=== PATIENT | female | born 1960 | race Two or more races ===

== ENCOUNTER 2017-04-13 04:17 | Inpatient (IN) | payer MEDICAID ==
[~2017-04-13] VITALS: Ht 157.5 cm; Wt 74.4 kg
[2017-04-13] VITALS (32 sets, daily range): BP systolic 79–120; BP diastolic 34–110
[~2017-04-13 04:17] MED LIST: BLOO-367 IN; INSU100V28 SQ; LEVO500T15 PO
[2017-04-13] MEDS ORDERED: METOPROLOL TARTRATE INJ 5 MG/5 ML AMPUL IV ONE (04:30)
[2017-04-13] MEDS ORDERED: NITROGLYCERIN PACKET 1 GM PACKET TD ONE (04:30)
[2017-04-13] MEDS ORDERED: ASPIRIN 81 MG TAB.CHEW PO ONE (04:30)
--- NOTE | 2017-04-13 04:30 | NUR ---
56 YO FEMALE BB RA FROM [facility]. PT IS ALERT X 3, STATES SHE HAD AN EPUSODE OF CHEST PAIN, NO LONGER HAVING THE CHEST PAIN AT THIS TIME. PT GOWNED, PALCED ONC ARDIAC MONITOR. SKIN WARM AND DRY, RR EVEN AND UNLABORED. AWAITING ORDERS FROM PROVIDER, WILL CONTINUE TO MONITOR
[2017-04-13] MEDS ORDERED: ASPIRIN 325 MG TABLET ONE (04:34)
--- NOTE | 2017-04-13 04:45 | NUR ---
PER MD ORDERS HOLD ON THE MEDICATION DUE TO LOW BLOOD PRESSURE
[2017-04-13] MEDS ORDERED: RANI150T12 PO (04:46)
[2017-04-13] MEDS ORDERED: SIMV10TA2 PO (04:46)
[2017-04-13] MEDS ORDERED: URSO250T11 PO (04:46)
[2017-04-13] MEDS ORDERED: ASPI81TA2 PO (04:46)
[2017-04-13] MEDS ORDERED: SITA100T PO (04:46)
[2017-04-13] MEDS ORDERED: METF10002 PO (04:46)
[2017-04-13] MEDS ORDERED: INSU100I14 SQ (04:46)
[2017-04-13] MEDS ORDERED: ACET-868 PO (04:46)
[2017-04-13] MEDS ORDERED: SPIR25TA PO (04:46)
[2017-04-13] MEDS ORDERED: DOCU-25 PO (04:46)
[2017-04-13] MEDS ORDERED: HYDR-552 PO (04:46)
[2017-04-13] MEDS ORDERED: POTA20TA83 PO (04:46)
[2017-04-13] MEDS ORDERED: GABA300C PO (04:46)
[2017-04-13] MEDS ORDERED: FOLI1TAB16 PO (04:46)
[2017-04-13] MEDS ORDERED: CARV3.12 PO (04:46)
--- NOTE | 2017-04-13 04:48 | NUR ---
MEDICATED PT PER MD ORDER; 500ML NS IV BOLUS, WILL CONTINUE TO MONITOR THE BLOOD PRESSURE
[2017-04-13 04:59] LABS: BASOPHILS % (AUTO) 0.2 % (0.0-2.0); EOSINOPHILS # (AUTO) 0.1 /CMM (0.0-0.7); HEMATOCRIT 40 % (33-45); HEMOGLOBIN 12.6 g/dL (11.5-14.8); LYMPHOCYTES # (AUTO) 0.9 /CMM (0.8-4.8); LYMPHOCYTES % (AUTO) 12.3 % (20.0-44.0); MEAN CORPUSCULAR HEMOGLOBIN 28 PG (26.0-33.0); MEAN CORPUSCULAR HGB CONC 32 g/dl (31.0-36.0); MEAN CORPUSCULAR VOLUME 89 fL (82-100); MONOCYTES # (AUTO) 0.3 /CMM (0.1-1.30); MONOCYTES % (AUTO) 4.6 % (2.0-12.0); NEUTROPHILS # (AUTO) 5.9 /CMM (1.8-8.9); NEUTROPHILS % (AUTO) 81.9 % (43.0-81.0); PLATELET COUNT (AUTO) 164 /CMM (150-450); RDW COEFFICIENT OF VARIATION 16.1 (11.5-15.0); RED BLOOD CELL COUNT(AUTO) 4.48 MIL/uL (4.0-5.2); WHITE BLOOD COUNT (AUTO) 7.3 K/uL (4.3-11.0)
[2017-04-13] MEDS ORDERED: IV NS 0.9% 1,000 ML BAG IV ONE ×2 (05:00→05:30)
[2017-04-13 05:12] LABS: CREATININE 1.1 mg/dL (0.6-1.3); POTASSIUM 3.1 mmol/L (3.5-5.1)
--- NOTE | 2017-04-13 05:15 | NUR ---
AT 500ML NS BOLUS SBP IS 101. MD NOTIFIED. PER MD, ADMIN ANOTHER 500ML NS BOLUS. WILL CONTINUE TO MONITOR
[2017-04-13 05:19] LABS: TROPONIN I 0.24 ng/mL (0.00-0.056)
[2017-04-13 05:20] LABS: D-DIMER 0.59 mg/L(FEU (0.17-0.50); INR 0.93 (0.87-1.13); PROTHROMBIN TIME 9.7 SECS (9.5-12.7)
[2017-04-13 05:24] LABS: ALBUMIN 2.6 g/dL (3.4-5.0); BILIRUBIN,DIRECT 0.1 mg/dL (0.0-0.2); BILIRUBIN,TOTAL 0.5 mg/dL (0.2-1.0)
--- NOTE | 2017-04-13 05:45 | NUR ---
AFTER SECOND 500 ML NS BOLUS, SBP IS 106. MD NOTIFIED. WILL CONTINUE TO MONITOR
--- NOTE | 2017-04-13 06:14 | NUR ---
DR. MAURISIO VELA
--- NOTE | 2017-04-13 06:15 | NUR ---
PER DR. FORDE, ADMIN DIGOXIN FOR TACHYCARDIA AND ADMIN IN ICU.
[2017-04-13] MEDS ORDERED: DIGOXIN INJ 0.5 MG/2 ML AMPUL ONE (06:22)
[2017-04-13] MEDS ORDERED: DIGOXIN INJ 0.5 MG/2 ML AMPUL IV ONE (06:30)
--- NOTE | 2017-04-13 06:30 | NUR ---
MEDICATED PT ORDERED
--- NOTE | 2017-04-13 06:37 | NUR ---
22G RIGHT HAND IV STARTED.
--- NOTE | 2017-04-13 06:43 | NUR ---
ICU 256
--- NOTE | 2017-04-13 07:32 | NUR ---
REPORT GIVEN TO BLAZE CARCAMO FOR DEMAR
--- NOTE | 2017-04-13 08:13 | NUR ---
INITIAL BOARD ATTENDANT NOTE RCVD PT FROM ER AWAKE AND ALERT, SHOWING NO S/O DISTRESS OR C/O PAIN VERBALIZED. AFLUTTER IN MONITOR, ON RA WITH GOOD SATURATION. SKIN INTACT. IV SITES C/D/I/PATENT. ORDERS ACKNOWLEDGED IN CHART AND ENTERED. PER REPORT FROM DONA AGARWAL DR. AWARE OF PT'S ELEVATED TROPONIN/D-DIMER. PT'S VITAL SIGNS REMAIN STABLE AT THIS TIME. WILL CONTINUE TO MONITOR FOR SAFETY AND COMFORT. CALL LIGHT WITHIN REACH. BED IN LOW AND LOCKED POSITION.
[2017-04-13] MEDS ORDERED: MORPHINE SULFATE INJ 2 MG/ML DISP.SYRIN IV PRN (08:30)
[2017-04-13] MEDS ORDERED: NOREPINEPHRINE 16 MG in IV D5W 500 ML IV PRN ×2 (08:30→09:00)
[2017-04-13] MEDS: NITROGLYCERIN 30 GM TUBE TP SCH ×2 (09:00→15:00)
[2017-04-13] MEDS ORDERED: PANTOPRAZOLE 40 MG TABLET.DR PO SCH (09:00)
[2017-04-13] MEDS ORDERED: ASPIRIN 81 MG TAB.CHEW PO SCH ×2 (09:00→11:28)
[2017-04-13] MEDS: NITROGLYCERIN PACKET 1 GM PACKET TD SCH ×2 (11:30→16:56)
--- NOTE | 2017-04-13 11:35 | NUR ---
EXHAUST AND MUFFLER FITTER NOTE DR. VIGIL CALLED WITH TROPONIN RESULTS TRENDING UP AND K 3.1. WILL CONTINUE TO MONITOR PT.
[2017-04-13] MEDS: METOPROLOL TARTRATE INJ 5 MG/5 ML AMPUL IVP SCH ×2 (11:54→17:10)
--- NOTE | 2017-04-13 12:04 | NUR ---
HOLLOCK MAKER NOTE DR. CADE IN UNIT UPDATED ON PT'S CONDITION. REQUESTED TO MONITOR BLOOD GLUCOSE. RCVD ORDER FOR SLIDING SCALE MILD. INFORMED MD ABOUT PT'S TROPONIN TRENDING UP AND HAVE INFORMED DR. VIGIL ABOUT IT EARLIER TODAY. PICC LINE ORDER RCVD TO ADMINISTER LEVO IF NECESSARY. WILL CONTINUE TO MONITOR PT.
[2017-04-13] MEDS ORDERED: DEXTROSE 50%-WATER 50 ML DISP.SYRIN IV PRN (12:30)
[2017-04-13] MEDS ORDERED: Z GUARD REMEDY 2 OZ OINT TP PRN (12:30)
[2017-04-13] MEDS ORDERED: ACETAMINOPHEN 325 MG TABLET PO PRN (13:00)
[2017-04-13] MEDS: ASPIRIN 81 MG TAB.CHEW PO SCH (13:00)
[2017-04-13] MEDS ORDERED: SPIRONOLACTONE 25 MG TABLET PO SCH (13:00)
[2017-04-13] MEDS: HYDROCODONE/APAP 5/325MG 1 EACH TABLET PO SCH ×2 (13:00→16:55)
[2017-04-13] MEDS: FOLIC ACID 1 MG TABLET PO SCH (13:27)
[2017-04-13] MEDS: GABAPENTIN 300 MG CAPSULE PO SCH ×2 (13:27→16:55)
[2017-04-13] MEDS: POTASSIUM CL. PREMIX PERIPHER. 50 ML IV SCH ×4 (13:28→18:15)
--- NOTE | 2017-04-13 13:59 | NUR ---
MEDICATION NOTE ASA 81MG DOSE SCHEDULED FOR 1300 NOT GIVEN. ASA 81 MG DOSE GIVEN IN AM.
[2017-04-13] MEDS ORDERED: IV NS 0.9% 250 ML BAG IV PRN (14:30)
[2017-04-13] MEDS ORDERED: IV NS 0.9% 250 ML IV PRN (14:30)
[2017-04-13] MEDS: BLOOD SUGAR DIAGNOSTIC 1 EACH STRIP IN SCH ×2 (16:55→21:15)
--- NOTE | 2017-04-13 17:09 | NUR ---
CHANNEL OPENER NOTE DR. VIGIL AT BEDSIDE UPDATED ON PT'S CONDITION. Addendum: 04/13/17 at 1900 by EVER ALCOCER RN PT REPORTED PAIN ON PERIPHERAL IV SITES, RIGHT FA AND RIGHT HAND IVs REMOVED.
[2017-04-13] MEDS ORDERED: INSULIN LISPRO 100 UNIT SQ SCH (17:30)
[2017-04-13] MEDS: FUROSEMIDE 40 MG/4 ML VIAL IV SCH (18:13)
[2017-04-13] MEDS: SIMVASTATIN 10 MG TABLET PO SCH (18:13)
--- NOTE | 2017-04-13 18:57 | NUR ---
RECREATIONAL FACILITIES MOTEL MANAGER NOTE DIGOXIN MISSING FROM [facility]MN[facility]. PHARMACY CALLED WILL ENDORSE TO CRATE REPAIRER PT STABLE SHOWING NO S/O DISTRESS/PAIN. AFIB ON TELE. REMAINS ON RA TOLERATING WELL. BELLA PICC C/D/I/PATENT. IVF INFUSING TKO. TOLERATING PO DIET. CALL LIGHT WITHIN REACH. BED IN LOW AND LOCKED POSITION. PT'S CARE WILL BE ENDORSED TO CRATE REPAIRER RN FOR CONTINUITY OF CARE.
[2017-04-13] MEDS: DIGOXIN 0.25 MG TABLET PO SCH (19:46)
--- NOTE | 2017-04-13 20:54 | NUR ---
RN;ICU: PT RECEIVED IN BED ALERT AND ORIENTED, GREENLANDIC SPEAKING. PT INCONTINENT OF URINE AND STOOL. PT PROVIDED PERICARE AND LINENS CHANGED/ DIGOXIN GIVEN LATE OMNICELL WAS NOT STOCKED WITH MED UNTIL NOW. PT ABLE TO MAKE NEEDS KNOWN AND CAN USE CALL LIGHT. PT HAS LEFT SIDED WEAKNESS DUE TO PREVIOUS CVA. LEFT UPPER ARM PICC LINE INTACT. PT CONTROLLED AFIB ON TELE. NO ACUTE DISTRESS. FALL PRECAUTIONS AND ASPIRATION PRECAUTIONS IN PLACE. VSS. WILL CONTINUE TO MONITOR CLOSELY.
--- NOTE | 2017-04-13 23:01 | NUR ---
RN:ICU: PT HAD SEVERAL LONG EPISODES OF MONOMORPHIC V-TACH. PT REMAINS ASYMPTOMATIC AND DENIES CHEST PAIN. BP WNL. ORDERS FOR STAT MAGNESIUM LEVEL ORDERED IT WAS NOT PREVIOUSLY PERFORMED. LAB CONTACTED REGARDING MAG LEVEL AND THEY SAID THEY WOULD BE ABLE TO CHECK THIS LEVEL WITH THE BLOOD OBTAINED TO CHECK TROP. NO ACUTE DISTRESS. WILL CONTACT MD ONCE MAG LEVEL RESULTED.
--- NOTE | 2017-04-13 23:26 | NUR ---
RN;ICU: PT MAG LEVEL 1.2. D/W DR GONZALEZ REGARDING RUNS OF VTACH AND LOW MAG LEVEL. NEW ORDERS FO MAG SULFATE 4GM IV OVER 4 HOURS. PER OK TO ENDORSE TO CARDIO REGARDING THE VTACH IN AM. ORDERS CARRIED OUT.
[2017-04-13] MEDS ORDERED: Magnesium 1GM/D5W 100ML PREMIX 400 ML IV ONE (23:34)
[2017-04-13] MEDS: Magnesium 1GM/D5W 100ML PREMIX 100 ML IV SCH (23:44)
[2017-04-14] VITALS (33 sets, daily range): BP systolic 83–132; BP diastolic 34–79
[2017-04-14] MEDS: Magnesium 1GM/D5W 100ML PREMIX 100 ML IV SCH ×3 (00:53→03:16)
[2017-04-14 04:58] LABS: CALCIUM, SERUM 8.1 mg/dL (8.5-10.1); CREATININE 0.8 mg/dL (0.6-1.3); MAGNESIUM 2.6 mg/dL (1.8-2.4); POTASSIUM 3.4 mmol/L (3.5-5.1)
--- NOTE | 2017-04-14 05:22 | NUR ---
RN:ICU: PT BP 80'S BUT PT IS ASYMPTOMATIC AND LAYING ON SIDE. NO ACUTE DISTRESS NOTED.
[2017-04-14] MEDS: BLOOD SUGAR DIAGNOSTIC 1 EACH STRIP IN SCH ×4 (07:45→21:17)
[2017-04-14] MEDS: PANTOPRAZOLE 40 MG TABLET.DR PO SCH (07:55)
[2017-04-14] MEDS: FOLIC ACID 1 MG TABLET PO SCH (08:21)
[2017-04-14] MEDS: GABAPENTIN 300 MG CAPSULE PO SCH ×2 (08:22→17:06)
[2017-04-14] MEDS: FUROSEMIDE 40 MG/4 ML VIAL IV SCH ×2 (08:22→17:06)
[2017-04-14] MEDS: ASPIRIN 81 MG TAB.CHEW PO SCH (08:22)
[2017-04-14] MEDS: POTASSIUM CHLORIDE 20 MEQ TAB.PRT.SR PO SCH (08:31)
[2017-04-14] MEDS: LINAGLIPTIN 5 MG TABLET PO SCH (08:31)
[2017-04-14] MEDS: HYDROCODONE/APAP 5/325MG 1 EACH TABLET PO SCH ×2 (08:33→17:06)
[2017-04-14] MEDS ORDERED: ASPIRIN 81 MG TAB.CHEW PO SCH (09:00)
[2017-04-14] MEDS: DIGOXIN 0.25 MG TABLET PO SCH (14:03)
[2017-04-14] MEDS ORDERED: POTASSIUM CHLORIDE 20 MEQ POWDER PACKET GT ONE (14:30)
--- NOTE | 2017-04-14 14:50 | NUR ---
RN NOTES RECEIVED PT AWAKE, A/OX4. SYRIAC SPEAKING. ON ROOM AIR. NO RESPIRATORY DISTRESS NOTED. DENIES ANY PAIN. ADAM PICC IN PLACE. SKIN INTACT. BLE ELEVATED. PT COMFORTABLE. CALL LIGHT WITHIN REACH. WILL MONITOR
[2017-04-14] MEDS: SIMVASTATIN 10 MG TABLET PO SCH (17:06)
[2017-04-14] MEDS: RIVAROXABAN 10 MG TABLET PO SCH (17:19)
[2017-04-14] MEDS: INSULIN REGULAR, HUMAN 100 UNIT/ML 3 ML VIAL SQ PRN (17:20)
--- NOTE | 2017-04-14 18:34 | NUR ---
RN NOTES PT REMAINS STABLE. NO SIGNIFICANT CHANGE NOTED. DENIES ANY PAIN. KEPT COMFORTABLE. ALL NEEDS ATTENDED AND MET. CALL LIGHT WITHIN REACH. WILL ENDORSE FOR CONTINUITY OF CARE.
--- NOTE | 2017-04-14 20:29 | NUR ---
received pt from day shift, alert, follows commands, L side weakness, Icelandic speaker, A fib, A flutter controlled, tolerates diet, diaper on, good urine output, v/s stable, no chest pain verbalized, pt turns and repositions by herself.
[2017-04-15] VITALS (23 sets, daily range): BP systolic 93–146; BP diastolic 43–121
--- NOTE | 2017-04-15 00:19 | NUR ---
pt is resting in the bed, v/s stable, no chest pain, good urine output.
--- NOTE | 2017-04-15 04:19 | NUR ---
pt is resting in the bed, no acute distress overnight, A fib controlled, v/s stable, no pain, pt cleaned and changed.
--- NOTE | 2017-04-15 07:00 | NUR ---
LANDSCAPE PHOTOGRAPHER- RECEIVED PT A/O X4, AMHARIC SPEAKING. ON 2L NC, RESPIRATIONS EVEN AND UNLABORED, NO SOB OR DISTRESS PRESENT. BEDSIDE MONITOR REVEALS A-FIB/A-FLUTTER. ADAM PICC LINE ON TKO. PT INCONTINENT OF URINE & STOOL, DIAPER CLEAN & DRY. SAFETY MEASURES TAKEN: BED LOCKED AND IN LOW POSITION, SIDE RAILS UP X2 AND BED ALARM ON, WILL CONTINUE TO MONITOR.
[2017-04-15] MEDS: BLOOD SUGAR DIAGNOSTIC 1 EACH STRIP IN SCH ×4 (08:25→22:08)
[2017-04-15] MEDS: POTASSIUM CHLORIDE 20 MEQ TAB.PRT.SR PO SCH (08:34)
[2017-04-15] MEDS: PANTOPRAZOLE 40 MG TABLET.DR PO SCH (08:34)
[2017-04-15] MEDS: GABAPENTIN 300 MG CAPSULE PO SCH ×2 (08:34→17:54)
[2017-04-15] MEDS: FOLIC ACID 1 MG TABLET PO SCH (08:34)
[2017-04-15] MEDS: LINAGLIPTIN 5 MG TABLET PO SCH (08:34)
[2017-04-15] MEDS: HYDROCODONE/APAP 5/325MG 1 EACH TABLET PO SCH ×2 (08:35→17:55)
[2017-04-15] MEDS: ASPIRIN 81 MG TAB.CHEW PO SCH (08:35)
[2017-04-15] MEDS: FUROSEMIDE 40 MG/4 ML VIAL IV SCH ×2 (08:35→17:53)
--- NOTE | 2017-04-15 08:50 | NUR ---
TOOL DIE MAKER- PT CONVERTED FROM A-FIB/A-FLUTTER TO SINUS RHYTHM, HR IN HIGH 90S. WILL CONTINUE TO MONITOR.
[2017-04-15 09:45] LABS: BASOPHILS # (AUTO) 0.1 /CMM (0.0-0.2); BASOPHILS % (AUTO) 0.8 % (0.0-2.0); EOSINOPHILS # (AUTO) 0.1 /CMM (0.0-0.7); HEMATOCRIT 36 % (33-45); HEMOGLOBIN 11.4 g/dL (11.5-14.8); LYMPHOCYTES % (AUTO) 14.6 % (20.0-44.0); MEAN CORPUSCULAR HEMOGLOBIN 28 PG (26.0-33.0); MEAN CORPUSCULAR HGB CONC 32 g/dl (31.0-36.0); MEAN CORPUSCULAR VOLUME 88 fL (82-100); MONOCYTES # (AUTO) 0.4 /CMM (0.1-1.30); MONOCYTES % (AUTO) 5.7 % (2.0-12.0); NEUTROPHILS # (AUTO) 5.6 /CMM (1.8-8.9); NEUTROPHILS % (AUTO) 77.9 % (43.0-81.0); PLATELET COUNT (AUTO) 192 /CMM (150-450); RDW COEFFICIENT OF VARIATION 15.8 (11.5-15.0); RED BLOOD CELL COUNT(AUTO) 4.05 MIL/uL (4.0-5.2); WHITE BLOOD COUNT (AUTO) 7.2 K/uL (4.3-11.0)
[2017-04-15 09:49] LABS: CREATININE 0.8 mg/dL (0.6-1.3); POTASSIUM 3.6 mmol/L (3.5-5.1)
[2017-04-15] MEDS: DIGOXIN 0.25 MG TABLET PO SCH (12:49)
--- NOTE | 2017-04-15 17:00 | NUR ---
DIET TECH- SPOKE TO DR. VIGIL. MD WILL EVALUATE PT LATER TONIGHT AND DETERMINE WHETHER PT CAN BE DOWNGRADED. WILL CONTINUE TO MONITOR.
[2017-04-15] MEDS: RIVAROXABAN 10 MG TABLET PO SCH (17:54)
[2017-04-15] MEDS: SIMVASTATIN 10 MG TABLET PO SCH (17:54)
--- NOTE | 2017-04-15 19:50 | NUR ---
EMISSIONS REPAIR TECHNICIAN: CALLED DR. FORDE AND OBTAINED ORDER TO DOWNGRADE PT. TO [facility]. PT V/S IS STABLE THROUGHOUT DAY SHIFT WT NO SIGNIFICANT DEMAR AT THIS TIME. A/O X 4, NO ACUTE DISTRESS, NO C/O PAIN OR EVIDENCE OF DISCOMFORT. NOTED AND CARRIED OUT ORDER. DIVERSIFIED CROPS II FARMWORKER KINDRA MADE AWARE AND AWAITING FOR BED.
[2017-04-15] MEDS: INSULIN REGULAR, HUMAN 100 UNIT/ML 3 ML VIAL SQ PRN (22:16)
--- NOTE | 2017-04-15 22:50 | NUR ---
OUTSIDE PLANT SUPERVISOR: PT. TRANSFERRED TO [facility] IN STABLE CONDITION. REPORT GIVEN TO DONA WHATLEY.
--- NOTE | 2017-04-15 23:00 | NUR ---
[facility] RN INITIAL NOTES RECEIVED PATIENT VIA BED FROM ICU. RECEIVED REPORT FROM ICU NURSE JAMES. A/OX3, FRENCH SPEAKING. DENIES PAIN OR DISCOMFORT. DENIES SOB, ON 2LPMO2 VIA NC. SKIN WARM AND DRY TO TOUCH. ON TELE MONITOR SR. ORIENTED PATIENT TO UNIT. PATIENT VERBALIZED UNDERSTANDING. WITH ADAM PICC LINE PATENT AND INTACT. HOB ELEVATED. SIDE RAILS UP AND LOCKED. BED KEPT AT LOWEST POSITION. CALL LIGHT KEPT WITHIN EASY REACH. WILL CONTINUE TO MONITOR.
[2017-04-16] VITALS: BP 94/67
[2017-04-16 04:00] VITALS: BP 92/47
--- NOTE | 2017-04-16 07:45 | NUR ---
BERTRAM RN INITIAL NOTES NO SIGNIFICANT CHANGES OVERNIGHT. NO C/O PAIN OR DISCOMFORT. DENIES SOB. DENIES N/V. SKIN WARM AND DRY TO TOUCH. WITH ADAM PICC LINE PATENT AND INTACT. SR ON TELE MONITOR. ALL NEEDS ANTICIPATED AND MET. KEPT CLEAN AND DRY. SIDE RAILS UP AND LOCKED. BED KEPT AT LOWEST POSITION. CALL LIGHT KEPT WITHIN EASY REACH. CONTINUITY OF CARE ENDORSED TO AM NURSE.
[2017-04-16 08:00] VITALS: BP 91/55
--- NOTE | 2017-04-16 08:15 | NUR ---
RN BERTRAM INIAL NOTE PATIENT IN BED SLEEPING A/OX3, IRISH SPEAKING ONLY . DENIES PAIN OR DISCOMFORT. DENIES SOB, ON 2LPMO2 VIA NC. SKIN WARM AND DRY TO TOUCH. ON TELE MONITOR SR. PATIENT VERBALIZED UNDERSTANDING FOR PLAN OF CARE .PT HAS ADAM PICC LINE PATENT AND INTACT. HOB ELEVATED. SIDE RAILS UP AND LOCKED. BED KEPT AT LOWEST POSITION. CALL LIGHT KEPT WITHIN EASY REACH. RN WILL CONTINUE TO MONITOR.CBG ASSESSED
[2017-04-16] MEDS: BLOOD SUGAR DIAGNOSTIC 1 EACH STRIP IN SCH ×3 (08:16→17:05)
[2017-04-16] MEDS: GABAPENTIN 300 MG CAPSULE PO SCH ×2 (08:20→17:03)
[2017-04-16] MEDS: POTASSIUM CHLORIDE 20 MEQ TAB.PRT.SR PO SCH (08:20)
[2017-04-16] MEDS: PANTOPRAZOLE 40 MG TABLET.DR PO SCH (08:20)
[2017-04-16] MEDS: ASPIRIN 81 MG TAB.CHEW PO SCH (08:20)
[2017-04-16] MEDS: FOLIC ACID 1 MG TABLET PO SCH (08:20)
[2017-04-16] MEDS: HYDROCODONE/APAP 5/325MG 1 EACH TABLET PO SCH ×3 (08:21→17:00)
[2017-04-16] MEDS: FUROSEMIDE 40 MG/4 ML VIAL IV SCH ×2 (08:21→17:00)
[2017-04-16] MEDS: LINAGLIPTIN 5 MG TABLET PO SCH (08:21)
[2017-04-16 12:00] VITALS: BP 95/65
[2017-04-16] MEDS ORDERED: DIGOXIN 0.25 MG TABLET PO SCH (13:00)
[2017-04-16] MEDS ORDERED: Ursodiol 250 MG PO SCH (17:00)
[2017-04-16] MEDS: RIVAROXABAN 10 MG TABLET PO SCH (17:05)
[2017-04-16] MEDS: SIMVASTATIN 10 MG TABLET PO SCH (17:05)
== END 2017-04-16 17:36 | DRG 190 ==
LOC: ER 04:19 → ICU 07:17 → TELE-TD 04-15 23:09
PROVIDERS: ADMIT Legal Medicine; ATTEND Legal Medicine
DX: I21.4 Non-ST elevation (NSTEMI) myocardial infarction (principal); I50.23 Acute on chronic systolic (congestive) heart failure; G93.40 Encephalopathy, unspecified; G30.9 Alzheimer's disease, unspecified; F02.80 Dementia in other diseases classified elsewhere, unspecified severity, without behavioral disturbance, psychotic disturbance, mood disturbance, and anxiety; I11.0 Hypertensive heart disease with heart failure; I25.5 Ischemic cardiomyopathy; I69.354 Hemiplegia and hemiparesis following cerebral infarction affecting left non-dominant side; I25.10 Atherosclerotic heart disease of native coronary artery without angina pectoris; Z98.2 Presence of cerebrospinal fluid drainage device; Z87.891 Personal history of nicotine dependence; Z95.1 Presence of aortocoronary bypass graft; Z79.899 Other long term (current) drug therapy; Z79.82 Long term (current) use of aspirin; Z79.4 Long term (current) use of insulin; I48.4 Atypical atrial flutter; I48.0 Paroxysmal atrial fibrillation; E11.9 Type 2 diabetes mellitus without complications
CPT/HCPCS: 36415; 36569; 71010-TC; 80048-TC; 80061-TC; 80076-TC; 80162-TC; 82962-TC; 83735-TC; 83880; 84484-TC; 85025-TC; 85378-TC; 85730-TC; 87081-TC; 93307-TC; A4606; C1751; J1160; J1815; J1940; J3475; J3480; J7040; J7050; J7060; Z7610

== ENCOUNTER 2017-06-01 10:16 | Inpatient (IN) | payer MEDICAID ==
[~2017-06-01] VITALS: Ht 162.6 cm; Wt 75.7 kg
[~2017-06-01 10:16] MED LIST changes: +ACET-868 PO; +ASPI81TA2 PO; -BLOO-367 IN; +CARV3.12 PO; +DOCU-25 PO; +FOLI1TAB16 PO; +GABA300C PO; +HYDR-552 PO; +INSU100I14 SQ; -INSU100V28 SQ; -LEVO500T15 PO; +METF10002 PO; +POTA20TA83 PO; +RANI150T12 PO; +SIMV10TA2 PO; +SITA100T PO; +SPIR25TA PO; +URSO250T11 PO
--- NOTE | 2017-06-01 10:30 | NUR ---
bb from [facility] for abd pain and headache x last night, nad noted, vss, resp even and unlabored, pt put on tele monitor, iv patent, blood sample collected and sent to lab, waiting for md staton.
[2017-06-01 10:54] LABS: BASOPHILS # (AUTO) 0.1 /CMM (0.0-0.2); BASOPHILS % (AUTO) 0.7 % (0.0-2.0); EOSINOPHILS # (AUTO) 0.1 /CMM (0.0-0.7); HEMATOCRIT 38 % (33-45); HEMOGLOBIN 12.3 g/dL (11.5-14.8); LYMPHOCYTES # (AUTO) 1.2 /CMM (0.8-4.8); MEAN CORPUSCULAR HEMOGLOBIN 28 PG (26.0-33.0); MEAN CORPUSCULAR HGB CONC 33 g/dl (31.0-36.0); MEAN CORPUSCULAR VOLUME 86 fL (82-100); MONOCYTES # (AUTO) 0.7 /CMM (0.1-1.30); MONOCYTES % (AUTO) 8.2 % (2.0-12.0); NEUTROPHILS # (AUTO) 6.6 /CMM (1.8-8.9); NEUTROPHILS % (AUTO) 76.1 % (43.0-81.0); PLATELET COUNT (AUTO) 211 /CMM (150-450); RDW COEFFICIENT OF VARIATION 15.2 (11.5-15.0); RED BLOOD CELL COUNT(AUTO) 4.38 MIL/uL (4.0-5.2); WHITE BLOOD COUNT (AUTO) 8.7 K/uL (4.3-11.0)
[2017-06-01 11:08] LABS: CALCIUM, SERUM 9.1 mg/dL (8.5-10.1); CREATININE 0.8 mg/dL (0.6-1.3); POTASSIUM 4.8 mmol/L (3.5-5.1)
[2017-06-01] MEDS ORDERED: IOHEXOL-300 100 ML VIAL IV ONE (11:12)
[2017-06-01] MEDS ORDERED: IV NS 0.9% 0 ML IV ONE (11:12)
--- NOTE | 2017-06-01 11:12 | NUR ---
XRAY AT BS
[2017-06-01 11:16] LABS: TROPONIN I 0.021 ng/mL (0.00-0.056)
[2017-06-01 11:19] LABS: INR 1.07 (0.87-1.13); PROTHROMBIN TIME 11.1 SECS (9.5-12.7)
[2017-06-01] MEDS ORDERED: FUROSEMIDE 20 MG/2 ML VIAL ONE (11:49)
[2017-06-01] MEDS ORDERED: DILTIAZEM HCL 25 MG IV ONE (11:50)
[2017-06-01] MEDS ORDERED: FUROSEMIDE 20 MG/2 ML VIAL IV ONE (12:00)
[2017-06-01] MEDS ORDERED: DILTIAZEM HCL 25 MG IV IV ONE (12:00)
[2017-06-01] MEDS ORDERED: MAGN400O6 PO (12:05)
[2017-06-01] MEDS ORDERED: DIGO125T PO (12:05)
[2017-06-01] MEDS ORDERED: FURO40TA5 PO (12:05)
[2017-06-01] MEDS ORDERED: NA P133E RC (12:05)
[2017-06-01] MEDS ORDERED: PANT40TA4 PO (12:05)
[2017-06-01] MEDS ORDERED: RIVA10TA PO (12:05)
[2017-06-01] MEDS ORDERED: BISA10SU8 RC (12:05)
[2017-06-01] MEDS ORDERED: NATE60TA PO (12:05)
--- NOTE | 2017-06-01 12:40 | NUR ---
CONFIRMED DR CADE CURRENTLY ON SUSPENSION LIST, PAGED RAHEEM DAMON FOR ADMISSION
--- NOTE | 2017-06-01 12:55 | NUR ---
ADMIT TO RM 315-2
--- NOTE | 2017-06-01 13:08 | NUR ---
REPORT GIVEN TO KULWANT
--- NOTE | 2017-06-01 13:40 | NUR ---
FABRIC WORKER LEADER NOTES RECEIVED PT FROM E.R. STAFF, AWAKE, ALERT, SPOKE WITH PT THROUGH LOSS PREVENTION AND SAFETY MANAGER, DENIES PAIN, NOT IN DISTRESS, ON ROOM AIR, ROOM SET UP ORIENTATION PROVIDED, VERBALIZED UNDERSTANDING, BELONGINGS CHECKED, KEPT COMFORTABLE IN BED, VITALS TAKEN AND RECORDED, DR. DAMON INFORMED, AWAITING ADMISSION ORDERS.
[2017-06-01 16:00] VITALS: BP 111/62
[2017-06-01] MEDS ORDERED: Z GUARD REMEDY 2 OZ OINT TP PRN (16:00)
[2017-06-01] MEDS ORDERED: ONDANSETRON HCL/PF 4 MG/2 ML VIAL IVP PRN (16:00)
[2017-06-01] MEDS ORDERED: DEXTROSE 50%-WATER 50 ML DISP.SYRIN IV PRN (16:00)
[2017-06-01] MEDS ORDERED: BISACODYL SUPP (10 MG) 10 MG/SUPP.RECT SUPP.RECT RC PRN (16:00)
[2017-06-01] MEDS ORDERED: MAGNESIUM HYDROXIDE 30 ML UDC PO PRN (16:00)
[2017-06-01] MEDS ORDERED: NA PHOS,M-B/NA PHOS,DI-BA 1 EA ENEMA RC PRN (16:00)
[2017-06-01] MEDS: FUROSEMIDE 40 MG/4 ML VIAL IV SCH ×2 (17:23→20:56)
[2017-06-01] MEDS: GABAPENTIN 300 MG CAPSULE PO SCH (17:23)
[2017-06-01] MEDS: DOCUSATE SODIUM 100 MG CAPSULE PO SCH (17:23)
[2017-06-01] MEDS: NATEGLINIDE 60 MG TABLET PO SCH (17:24)
[2017-06-01] MEDS: HYDROCODONE/APAP 5/325MG 1 EACH TABLET PO SCH (17:24)
[2017-06-01] MEDS: BLOOD SUGAR DIAGNOSTIC 1 EACH STRIP IN SCH ×2 (17:26→21:05)
[2017-06-01] MEDS: RIVAROXABAN 10 MG TABLET PO SCH (17:41)
--- NOTE | 2017-06-01 18:45 | NUR ---
SCIENTIFIC PROGRAMMER CLOSING NOTES PATIENT IN BED, AWAKE, ALERT AND ORIENTED TO SELF, ABLE TO VERBALIZE NEEDS, UNDER TELE WITH AFIB, A FLUTTER HR @ 89, DENIES CHEST PAIN, NO DIZZINESS, NO C/O PAIN AT THIS TIME, NO SIGNS AND SYMPTOMS OF ACUTE DISTRESS. ALL PATIENT'S NEEDS ATTENDED TO. PLACED CALL LIGHT WITHIN EASY REACH.
--- NOTE | 2017-06-01 19:25 | NUR ---
ORGAN RECOVERY COORDINATOR OPENING NOTES: RECEIVED PT ASLEEP IN BED. PT IS [place]ICARAGU[place] SPEAKING AND UNDERSTANDING ONLY. PT DENIES ANY PAIN. NO S/S OF DISTRESS NOTED AT THIS TIME. CALL LIGHT WITHIN PT'S REACH. BED KEPT IN LOW, LOCKED POSITION, AND SIDE RAILS X 2 UP. PT ON TELE BOX. PT IS A/OX3-4. PT HAS IV ON R HAND AND IS PATENT AND INTACT. WILL CONTINUE TO MONITOR PT.
[2017-06-01 20:00] VITALS: BP 88/55
--- NOTE | 2017-06-01 20:56 | NUR ---
TRADER FIXED INCOME NOTES: LASIX 40MG WAS HELD D/T LOW BP 88/56 HR 81. WILL CONTINUE TO MONITOR PT'S BP.
[2017-06-01] MEDS: SIMVASTATIN 10 MG TABLET PO SCH (21:06)
[2017-06-01] MEDS: ACETAMINOPHEN 325 MG TABLET PO PRN (21:06)
--- NOTE | 2017-06-01 21:11 | NUR ---
TUBE SPLICER NOTES: PT COMPLAINING OF HEADACHE. PT WAS ADMINISTERED TYLENOL 650 MG. BLOOD SUGAR WAS 121; NO INSULIN WAS ADMINISTERED. WILL CONTINUE TO MONITOR PT.
[2017-06-01] MEDS: INSULIN REGULAR, HUMAN 100 UNIT/ML 3 ML VIAL SQ PRN (21:13)
[2017-06-01] MEDS ORDERED: DIGOXIN INJ 0.5 MG/2 ML AMPUL ONE (22:45)
--- NOTE | 2017-06-01 22:48 | NUR ---
JAVA PROJECT MANAGER NOTES: SPOKE WITH DR. CHOU AND INFORMED HER OF BP 97/57 AND HR FLUCTUATING FROM 115-130S. GOT ONE TIME ORDER FOR DIGOXIN 0.125MG IV AND METOPROLOL 25MG PO Q6HRN PRN FOR HR >120 AND HOLD FOR SYSTOLIC <90.
[2017-06-01] MEDS ORDERED: METOPROLOL TARTRATE 25 MG TABLET PO PRN (23:00)
[2017-06-01] MEDS ORDERED: DIGOXIN INJ 0.5 MG/2 ML AMPUL IV ONE (23:00)
--- NOTE | 2017-06-01 23:00 | NUR ---
DIRECTOR OF FOOD AND NUTRITION NOTES: PT PULLED OUT HER IV ON R HAND. EXTREMITY WAS ELEVATED. NEW IV ON R ARM WAS STARTED #22G AND IS PATENT AND INTACT. INSTRUCTED PT NOT TO PULL OUT IV AND THAT IS IS NECESSARY FOR BEING IN THE HOSPITAL IN CASE OF HAVING TO GIVE HER MEDS.
[2017-06-02] VITALS: BP 95/64
--- NOTE | 2017-06-02 | NUR ---
RESORT MANAGER NOTES: INFORMED DR. CHOU THAT PT HAS A SCHEDULED LASIX 40MG DOSE AT 0100. INFORMED HER OF BP 95/[address] CHOU, HOLD LASIX 40MG IV AND JUST TO MONITOR THE HEART RATE FOR NOW. WILL CONTINUE TO MONITOR.
[2017-06-02] MEDS: FUROSEMIDE 40 MG/4 ML VIAL IV SCH ×3 (00:01→17:49)
[2017-06-02 04:00] VITALS: BP 97/61
[2017-06-02] MEDS: BLOOD SUGAR DIAGNOSTIC 1 EACH STRIP IN SCH ×4 (06:06→21:14)
[2017-06-02] MEDS: INSULIN REGULAR, HUMAN 100 UNIT/ML 3 ML VIAL SQ PRN ×3 (06:09→17:52)
--- NOTE | 2017-06-02 06:10 | NUR ---
MOBILE MARKETING MANAGER NOTES: BLOOD SUGAR THIS AM WAS 114. NO INSULIN WAS ADMINISTERED. WILL CONTINUE TO MONITOR PT.
[2017-06-02 06:40] LABS: HEMATOCRIT 38 % (33-45); HEMOGLOBIN 12.2 g/dL (11.5-14.8); MEAN CORPUSCULAR HEMOGLOBIN 28 PG (26.0-33.0); MEAN CORPUSCULAR HGB CONC 32 g/dl (31.0-36.0); MEAN CORPUSCULAR VOLUME 87 fL (82-100); PLATELET COUNT (AUTO) 198 /CMM (150-450); RDW COEFFICIENT OF VARIATION 15.2 (11.5-15.0); RED BLOOD CELL COUNT(AUTO) 4.38 MIL/uL (4.0-5.2); WHITE BLOOD COUNT (AUTO) 7.3 K/uL (4.3-11.0)
--- NOTE | 2017-06-02 06:48 | NUR ---
AUTISM TUTOR CLOSING NOTES: ALL NEEDS WERE ATTENDED AND ANTICIPATED FOR. PT IS LAYING DOWN IN BED COMFORTABLY. PT IS BOLIVIAN SPEAKING AND UNDERSTANDING ONLY. PT DENIES ANY PAIN. NO S/S OF DISTRESS NOTED AT THIS TIME. PT ON TELE BOX AND READING SHOWS A FIB/ A-FLUTTER 97-133. CALL LIGHT WITHIN PT'S REACH. BED KEPT IN LOW, LOCKED POSITION, AND SIDE RAILS X 2 UP. PT IS A/OX2-3. PT HAS IV ON R ARM AND IS PATENT AND INTACT. PT CURRENTLY S/L. WILL ENDORSE TO AM NURSE FOR DEMAR.
[2017-06-02 06:55] LABS: CALCIUM, SERUM 8.8 mg/dL (8.5-10.1); CREATININE 0.8 mg/dL (0.6-1.3); MAGNESIUM 1.7 mg/dL (1.8-2.4); PHOSPHORUS 4.4 mg/dL (2.5-4.9); POTASSIUM 3.9 mmol/L (3.5-5.1)
[2017-06-02 07:10] LABS: DIGOXIN 0.9 ng/mL (0.90-2.00)
[2017-06-02 08:00] VITALS: BP 104/77
--- NOTE | 2017-06-02 08:00 | NUR ---
COMPUTER PROJECT MANAGER AM NOTES: PT IS AZERI SPEAKING WITH CONFUSION. PT DENIES ANY PAIN. RESPIRATIONS NON LABORED IN ROOM AIR.NO S/S OF DISTRESS NOTED AT THIS TIME. CALL LIGHT WITHIN PT'S REACH. BED KEPT IN LOW, LOCKED POSITION, AND SIDE RAILS X 2 UP. PT ON TELE BOX. PT HAS IV ON R ARM AND IS PATENT AND INTACT. WILL CONTINUE TO MONITOR PT
[2017-06-02] MEDS ORDERED: SITAGLIPTIN PHOSPHATE 50 MG TABLET PO SCH (09:00)
[2017-06-02] MEDS ORDERED: FUROSEMIDE 40 MG TABLET PO SCH (09:00)
[2017-06-02] MEDS: CARVEDILOL 3.125 MG TABLET PO SCH (09:00)
[2017-06-02] MEDS ORDERED: DIGOXIN 0.125 MG TABLET PO SCH (09:00)
[2017-06-02] MEDS ORDERED: DIGOXIN INJ 0.5 MG/2 ML AMPUL IV ONE (09:00)
[2017-06-02] MEDS: ASPIRIN 81 MG TAB.CHEW PO SCH (09:43)
[2017-06-02] MEDS: HYDROCODONE/APAP 5/325MG 1 EACH TABLET PO SCH ×2 (09:43→17:51)
[2017-06-02] MEDS: GABAPENTIN 300 MG CAPSULE PO SCH ×2 (09:43→17:49)
[2017-06-02] MEDS: NATEGLINIDE 60 MG TABLET PO SCH ×3 (09:43→17:51)
[2017-06-02] MEDS: LINAGLIPTIN 5 MG TABLET PO SCH (09:43)
[2017-06-02] MEDS: DOCUSATE SODIUM 100 MG CAPSULE PO SCH ×2 (09:43→17:49)
[2017-06-02] MEDS: FOLIC ACID 1 MG TABLET PO SCH (09:43)
[2017-06-02] MEDS: POTASSIUM CHLORIDE 20 MEQ TAB.PRT.SR PO SCH (09:52)
[2017-06-02 10:00] LABS: BAND % (MANUAL) 1 % (0.0-5.0); EOSINOPHILS % (MANUAL) 2 % (0-4); LYMPHOCYTES % (MANUAL) 12 % (16-48); MONOCYTES % (MANUAL) 7 % (0-11.0); NEUTROPHILS % (MANUAL) 78 (42-76)
[2017-06-02] MEDS: Magnesium 1GM/D5W 100ML PREMIX 100 ML IV SCH ×2 (10:03→11:13)
[2017-06-02] MEDS: PANTOPRAZOLE 40 MG TABLET.DR PO SCH (10:03)
[2017-06-02] MEDS: BISOPROLOL FUMARATE 5 MG TABLET PO SCH (10:05)
[2017-06-02 16:00] VITALS: BP 94/68
[2017-06-02] MEDS: RIVAROXABAN 10 MG TABLET PO SCH (17:50)
--- NOTE | 2017-06-02 18:13 | NUR ---
PT RESTING IN BED REFUSING TO EAT DINNER INSPITE OF ENCOURAGEMENT AND OFFERING HER SNACKS BUT INSISTS TO REFUSE AND FINISHES DRINKING HER SODA ALWAYS.ENCOURAGED INCREASE ORAL INTAKE WILL MONITOR.
--- NOTE | 2017-06-02 19:30 | NUR ---
RN NOTES RECEIVED PATIENT IN BED AWAKE, AO X 2-3, ABLE TO MAKE NEEDS KNOWN. NO ACUTE DISTRESS NOTED. DENIES ANY PAIN AT THIS TIME. TELE READING HR A. FLUTTER HR 65. IV SITE PATENT, INTACT; FLUSHED. NO SYMPTOMS OF HYPER/HYPOGLYCEMIA. ON LOW BED WITH BILATERAL UPPER SIDE RAILS UP. CALL LIGHT WITHIN EASY REACH. WILL CONTINUE TO MONITOR.
[2017-06-02] MEDS: ACETAMINOPHEN 325 MG TABLET PO PRN (19:53)
[2017-06-02 20:00] VITALS: BP 105/66
[2017-06-02] MEDS: SIMVASTATIN 10 MG TABLET PO SCH (21:14)
[2017-06-03] VITALS (8 sets, daily range): BP systolic 91–115; BP diastolic 51–75
--- NOTE | 2017-06-03 06:04 | NUR ---
RN NOTES PATIENT ASLEEP, EASILY AROUSABLE. RESPIRATIONS EVEN. NO SIGNS OF PAIN NOTED. DUE MEDS GIVEN WITH NO ASE NOTED. NEEDS ATTENDED. KEPT CLEAN, DRY, AND COMFORTABLE. SAFETY PRECAUTIONS AND COMFORT MEASURES IN PLACE. WILL GIVE REPORT TO DAY SHIFT FOR CONTINUITY OF CARE.
[2017-06-03 06:34] LABS: BASOPHILS % (AUTO) 0.6 % (0.0-2.0); EOSINOPHILS # (AUTO) 0.1 /CMM (0.0-0.7); EOSINOPHILS % (AUTO) 1.6 % (0.0-6.0); HEMATOCRIT 41 % (33-45); LYMPHOCYTES # (AUTO) 1.4 /CMM (0.8-4.8); LYMPHOCYTES % (AUTO) 15.5 % (20.0-44.0); MEAN CORPUSCULAR HEMOGLOBIN 28 PG (26.0-33.0); MEAN CORPUSCULAR HGB CONC 32 g/dl (31.0-36.0); MEAN CORPUSCULAR VOLUME 87 fL (82-100); MONOCYTES # (AUTO) 0.9 /CMM (0.1-1.30); MONOCYTES % (AUTO) 9.6 % (2.0-12.0); NEUTROPHILS # (AUTO) 6.4 /CMM (1.8-8.9); NEUTROPHILS % (AUTO) 72.7 % (43.0-81.0); PLATELET COUNT (AUTO) 211 /CMM (150-450); RED BLOOD CELL COUNT(AUTO) 4.69 MIL/uL (4.0-5.2); WHITE BLOOD COUNT (AUTO) 8.9 K/uL (4.3-11.0)
[2017-06-03] MEDS: BLOOD SUGAR DIAGNOSTIC 1 EACH STRIP IN SCH ×4 (06:35→21:44)
[2017-06-03 06:44] LABS: CALCIUM, SERUM 8.6 mg/dL (8.5-10.1); CREATININE 0.9 mg/dL (0.6-1.3); PHOSPHORUS 4.9 mg/dL (2.5-4.9); POTASSIUM 3.5 mmol/L (3.5-5.1)
--- NOTE | 2017-06-03 07:58 | NUR ---
RN OPENING NOTES RECEIVED PATIENT RESTING COMFORTABLY IN BED. EASILY AROUSABLE. AOX2/3 INDONESIAN SPEAKING. DENIES CP OR SOB. DENIES ANY PAIN AT THIS TIME. RESPIRATIONS EVEN AND UNLABORED. NO ACUTE DISTRESS NOTED. IV ACCESS ON THE RIGHT ARM 22G AND LEFT HAND 24G. BOTH PATENT AND INTACT. BED LOCKED IN THE LOWEST POSITION WITH SIDE RAILS UP X2. CALL LIGHT WITHIN REACH. WILL CONTINUE TO MONITOR, ASSESS AND EDUCATE PATIENT THROUGHOUT SHIFT
[2017-06-03] MEDS: BISOPROLOL FUMARATE 5 MG TABLET PO SCH (09:00)
[2017-06-03] MEDS: CARVEDILOL 3.125 MG TABLET PO SCH (09:00)
[2017-06-03] MEDS: FUROSEMIDE 40 MG/4 ML VIAL IV SCH (09:35)
[2017-06-03] MEDS: GABAPENTIN 300 MG CAPSULE PO SCH ×2 (09:35→17:39)
[2017-06-03] MEDS: NATEGLINIDE 60 MG TABLET PO SCH ×3 (09:36→17:38)
[2017-06-03] MEDS: LINAGLIPTIN 5 MG TABLET PO SCH (09:36)
[2017-06-03] MEDS: DOCUSATE SODIUM 100 MG CAPSULE PO SCH ×2 (09:36→17:38)
[2017-06-03] MEDS: POTASSIUM CHLORIDE 20 MEQ TAB.PRT.SR PO SCH (09:36)
[2017-06-03] MEDS: HYDROCODONE/APAP 5/325MG 1 EACH TABLET PO SCH ×2 (09:36→17:44)
[2017-06-03] MEDS: ASPIRIN 81 MG TAB.CHEW PO SCH (09:36)
[2017-06-03] MEDS: FOLIC ACID 1 MG TABLET PO SCH (09:36)
--- NOTE | 2017-06-03 09:40 | NUR ---
RN NON ADMIN NOTES PATIENT BP 90/63. BP MEDICATION HELD FOR POTENTIAL OF WORSENING HYPOTENSION
[2017-06-03] MEDS: PANTOPRAZOLE 40 MG TABLET.DR PO SCH (09:47)
[2017-06-03] MEDS: INSULIN REGULAR, HUMAN 100 UNIT/ML 3 ML VIAL SQ PRN ×2 (12:29→21:44)
--- NOTE | 2017-06-03 12:30 | NUR ---
RN NON ADMIN NOTES PATIENT REFUSED INSULIN FOR BLOOD SUGAR 139.
--- NOTE | 2017-06-03 12:31 | NUR ---
RN NOTES PATIENT HYPOTENSIVE. PLACED IN [place]. WILL REASSESS.
[2017-06-03] MEDS: DIGOXIN 0.125 MG TABLET PO SCH (13:50)
[2017-06-03] MEDS ORDERED: FUROSEMIDE 40 MG/4 ML VIAL IV SCH (17:00)
[2017-06-03] MEDS ORDERED: IPRATROPIUM NEB FS 0.5 MG/2.5 ML AMPUL.NEB NEB PRN (17:30)
[2017-06-03] MEDS ORDERED: ALBUTEROL FS 2.5 MG/0.5 ML VIAL.NEB NEB PRN (17:30)
[2017-06-03] MEDS: RIVAROXABAN 10 MG TABLET PO SCH (17:41)
--- NOTE | 2017-06-03 19:00 | NUR ---
RN NOTES RECEIVED PT IN BED RESTING COMFORTABLY. IN STABLE CONDITION, NO S/S OF DISTRESS. SAFETY MEASURES ARE IN PLACE, CALL LIGHT IS IN REACH. WILL CONTINUE TO MONITOR.
--- NOTE | 2017-06-03 19:19 | NUR ---
RN CLOSING NOTES PATIENT RESTING COMFORTABLY IN BED. AOX2/3. IV PATENT AND INTACT. ON TELE MONITOR READING AFLUTTER CONTROLLED 97. ON 2LPM FOR COMFORT AND SOB. NO ACUTE DISTRESS. RESPIRATIONS EVEN AND UNLABORED. DENIES ANY PAIN AT THIS TIME. DENIES CP.COMPLAINING OF MILD SOB. ALL NEEDS MET. ALL MEDS GIVEN NEEDED. WILL ENDORSE TO NIGHT RN FOR DEMAR.
[2017-06-03] MEDS: SIMVASTATIN 10 MG TABLET PO SCH (21:42)
[2017-06-04] VITALS (9 sets, daily range): BP systolic 95–117; BP diastolic 60–68
[2017-06-04] MEDS: BLOOD SUGAR DIAGNOSTIC 1 EACH STRIP IN SCH ×4 (05:41→21:15)
[2017-06-04] MEDS: INSULIN REGULAR, HUMAN 100 UNIT/ML 3 ML VIAL SQ PRN ×3 (05:45→21:16)
--- NOTE | 2017-06-04 06:44 | NUR ---
UTILITY SALES AND SERVICE MANAGER CLOSING NOTES PATIENT COMFORTABLY ASLEEP AND EASILY AWAKEN, A/O X 2-3 HEAD OF BED ELEVATED FOR BETTER LUNG EXPANSION. RESPIRATIONS EVEN AND UNLABORED. NO S/S OF ACUTE DISTRESS AFEBRILE, ALL NURSING CARE RENDERED. NEEDS ATTENDED AND ANTICIPATED, KEPT CLEAN AND DRY AND COMFORTABLE, FREQUENT VISUAL CHECK DONE FOR SAFETY EVERY 2 HOURS.SAFE HAZARD FREE ENVIRONMENT PROVIDED. CALL LIGHT WITHIN EASY TO REACH, ON LOW BED AT ALL TIMES TO ENSURE SAFETY, WILL ENDORSE TO THE NEXT SHIFT CONTINUE PLAN OF CARE. ATTACH TO TELE MTR
--- NOTE | 2017-06-04 07:32 | NUR ---
RN OPENING NOTES RECEIVED PATIENT RESTING COMFORTABLY IN BED. EASILY AROUSABLE. AOX2/3 ENGLISH SPEAKING. DENIES CP OR SOB. DENIES ANY PAIN AT THIS TIME. RESPIRATIONS EVEN AND UNLABORED. NO ACUTE DISTRESS NOTED. IV ACCESS ON THE RIGHT ARM 22G AND LEFT HAND 24G. BOTH PATENT AND INTACT. BED LOCKED IN THE LOWEST POSITION WITH SIDE RAILS UP X2. CALL LIGHT WITHIN REACH. WILL CONTINUE TO MONITOR, ASSESS AND EDUCATE PATIENT THROUGHOUT SHIFT.
[2017-06-04 08:04] LABS: DIGOXIN 1.29 ng/mL (0.90-2.00)
[2017-06-04 08:10] LABS: CALCIUM, SERUM 8.7 mg/dL (8.5-10.1); CREATININE 0.8 mg/dL (0.6-1.3); POTASSIUM 3.6 mmol/L (3.5-5.1)
[2017-06-04] MEDS: POTASSIUM CHLORIDE 20 MEQ TAB.PRT.SR PO SCH (10:17)
[2017-06-04] MEDS: GABAPENTIN 300 MG CAPSULE PO SCH ×2 (10:17→16:30)
[2017-06-04] MEDS: NATEGLINIDE 60 MG TABLET PO SCH ×3 (10:17→16:30)
[2017-06-04] MEDS: PANTOPRAZOLE 40 MG TABLET.DR PO SCH (10:17)
[2017-06-04] MEDS: FOLIC ACID 1 MG TABLET PO SCH (10:17)
[2017-06-04] MEDS: DOCUSATE SODIUM 100 MG CAPSULE PO SCH ×2 (10:17→16:30)
[2017-06-04] MEDS: ASPIRIN 81 MG TAB.CHEW PO SCH (10:17)
[2017-06-04] MEDS: LINAGLIPTIN 5 MG TABLET PO SCH (10:17)
[2017-06-04] MEDS: HYDROCODONE/APAP 5/325MG 1 EACH TABLET PO SCH ×2 (10:22→16:31)
[2017-06-04] MEDS: BUMETANIDE (1 MG) 1 MG TABLET PO SCH (10:22)
[2017-06-04] MEDS: BISOPROLOL FUMARATE 5 MG TABLET PO SCH (10:27)
[2017-06-04] MEDS: DIGOXIN 0.125 MG TABLET PO SCH (12:23)
[2017-06-04] MEDS: RIVAROXABAN 10 MG TABLET PO SCH (17:16)
--- NOTE | 2017-06-04 18:51 | NUR ---
RN CLOSING NOTES PATIENT RESTING COMFORTABLY IN BED. AOX2/3. IV PATENT AND INTACT. ON TELE MONITOR READING AFLUTTER CONTROLLED 65. ON 2LPM FOR COMFORT. NO ACUTE DISTRESS. RESPIRATIONS EVEN AND UNLABORED. DENIES ANY PAIN AT THIS TIME. DENIES CP AND SOB. ALL NEEDS MET. ALL MEDS GIVEN NEEDED. WILL ENDORSE TO NIGHT RN FOR DEMAR.
--- NOTE | 2017-06-04 19:00 | NUR ---
RN NOTES RECEIVED PT IN BED RESTING COMFORTABLY. A/O X 2-3, PT IN STABLE CONDITION, NO S/S OF DISTRESS. NO COMPLAINS OF PAIN AT THIS TIME. SAFETY MEASURES ARE IN PLACE, CALL LIGHT IS IN REACH. WILL CONTINUE TO MONITOR.
[2017-06-04] MEDS: SIMVASTATIN 10 MG TABLET PO SCH (21:13)
--- NOTE | 2017-06-04 21:22 | NUR ---
SORTING GRAPPLE OPERATOR NOTES NON ADMINISTRATION OF 2 UNITS OF INSULIN ORDERED PATIENT REFUSED MEDS PER PATIENT SHE DOESN'T NEED IT DESPITE EXPLAINING RISKS AND BENEFITS OFFERED 3 TIMES STILL REFUSED. MD CRABBING MACHINE OPERATOR AWARE.
[2017-06-05] VITALS: BP 94/56
[2017-06-05] MEDS: ACETAMINOPHEN 325 MG TABLET PO PRN (00:58)
[2017-06-05 04:00] VITALS: BP 98/68
[2017-06-05] MEDS: INSULIN REGULAR, HUMAN 100 UNIT/ML 3 ML VIAL SQ PRN ×2 (05:51→12:09)
[2017-06-05] MEDS: BLOOD SUGAR DIAGNOSTIC 1 EACH STRIP IN SCH ×2 (05:51→12:02)
--- NOTE | 2017-06-05 06:08 | NUR ---
BOOK SALESMAN NOTES NON ADMINISTRATION OF 2 UNITS OF INSULIN ORDERED PT BLOOD SUGAR IS 138 MG/DL PATIENT REFUSED MEDS PER PATIENT SHE DOESN'T NEED IT DESPITE EXPLAINING RISKS AND BENEFITS OFFERED 3 TIMES STILL REFUSED. MD RADIATION / CHEMISTRY TECHNICIAN AWARE.
--- NOTE | 2017-06-05 06:37 | NUR ---
DIE BAKER CLOSING NOTES SLEEPING BUT EASILY AWAKEN A/O X 2-3, ABLE TO MAKE NEEDS SELF KNOWN TO OTHERS, ATTACH TO TELE MONITOR, HEAD OF BED ELEVATED FOR BETTER LUNG EXPANSION. TOLERATING ROOM AIR NOW 02 SAT AT 98% IN STABLE CONDITION. NO S/S OF ACUTE DISTRESS, AFEBRILE, ALL NURSING CARE RENDERED. NEEDS ATTENDED AND ANTICIPATED, KEPT CLEAN AND DRY AND COMFORTABLE, GOOD SKIN CARE PROVIDED. FREQUENT VISUAL CHECK DONE FOR SAFETY EVERY 2 HOURS. SAFE HAZARD FREE ENVIRONMENT PROVIDED. CALL LIGHT WITHIN EASY TO REACH, ON LOW BED AT ALL TIMES TO ENSURE SAFETY, WILL ENDORSE TO THE NEXT SHIFT CONTINUE PLAN OF CARE
--- NOTE | 2017-06-05 07:30 | NUR ---
MANAGER OF INVESTIGATIONS NOTES PT IN BED, ASLEEP, BREATHING PATTERN NORMAL, NO SIGN OF PAIN OR DISTRESS, CALL LIGHT WITHIN REACH, KEPT CHIPPER OPERATOR BED.
[2017-06-05 07:36] LABS: CALCIUM, SERUM 8.3 mg/dL (8.5-10.1); CREATININE 0.8 mg/dL (0.6-1.3); POTASSIUM 4.3 mmol/L (3.5-5.1)
[2017-06-05 08:00] VITALS: BP 101/70
[2017-06-05] MEDS: ASPIRIN 81 MG TAB.CHEW PO SCH (09:00)
[2017-06-05] MEDS: GABAPENTIN 300 MG CAPSULE PO SCH (09:00)
[2017-06-05] MEDS: LINAGLIPTIN 5 MG TABLET PO SCH (09:00)
[2017-06-05] MEDS: DOCUSATE SODIUM 100 MG CAPSULE PO SCH (09:00)
[2017-06-05] MEDS: BISOPROLOL FUMARATE 5 MG TABLET PO SCH (09:00)
[2017-06-05] MEDS: BUMETANIDE (1 MG) 1 MG TABLET PO SCH (09:00)
[2017-06-05] MEDS: FOLIC ACID 1 MG TABLET PO SCH (09:00)
[2017-06-05] MEDS: HYDROCODONE/APAP 5/325MG 1 EACH TABLET PO SCH (09:00)
[2017-06-05] MEDS: POTASSIUM CHLORIDE 20 MEQ TAB.PRT.SR PO SCH (09:00)
[2017-06-05] MEDS: PANTOPRAZOLE 40 MG TABLET.DR PO SCH (09:00)
[2017-06-05] MEDS: NATEGLINIDE 60 MG TABLET PO SCH (09:01)
--- NOTE | 2017-06-05 11:51 | NUR ---
PRINT OPERATOR NOTES PT IN BED, AWAKE, ALERT AND ORIENTED, NO COMPLAINT OF PAIN, NOT IN DISTRESS, CALL LIGHT WITHIN REACH, ASSISTED WITH MEALS, DISCHARGE ORDER RECEIVED FROM DAJA ELDER, PT INFORMED, [facility] INFORMED, REPORT GIVEN TO FROILAN CARCAMO, LEFT MESSAGE TO PT'S SISTER ZARI ESTRADA, INFORMED OF PT'S PLANNED DISCHARGE TO [facility] TODAY.
[2017-06-05 12:00] VITALS: BP 100/69
--- NOTE | 2017-06-05 13:05 | NUR ---
CHILD PROTECTIVE SERVICES SOCIAL WORKER NOTES PT IN BED, AWAKE, ALERT AND ORIENTED, DISCHARGE AND MEDICATION INSTRUCTIONS PROVIDED TO PT, VERBALIZED UNDERSTANDING, BELONGINGS ACCOUNTED FOR, PICKED UP BY 2 AMBULANCE PERSONNEL, LEFT VIA GUERNEY, WITH ALL BELONGINGS IN STABLE CONDITION.
== END 2017-06-05 13:10 | DRG 194 ==
LOC: ER 10:20 → TELE 13:22
PROVIDERS: ADMIT Nurse Practitioner Acute Care; ATTEND Nurse Practitioner Acute Care
DX: I11.0 Hypertensive heart disease with heart failure (principal); I27.20 Pulmonary hypertension, unspecified; Z93.0 Tracheostomy status; I48.92 Unspecified atrial flutter; G30.9 Alzheimer's disease, unspecified; I69.351 Hemiplegia and hemiparesis following cerebral infarction affecting right dominant side; K81.1 Chronic cholecystitis; F02.80 Dementia in other diseases classified elsewhere, unspecified severity, without behavioral disturbance, psychotic disturbance, mood disturbance, and anxiety; Z95.1 Presence of aortocoronary bypass graft; I50.33 Acute on chronic diastolic (congestive) heart failure; I25.10 Atherosclerotic heart disease of native coronary artery without angina pectoris; I69.354 Hemiplegia and hemiparesis following cerebral infarction affecting left non-dominant side; I25.5 Ischemic cardiomyopathy; Z98.2 Presence of cerebrospinal fluid drainage device; Z87.891 Personal history of nicotine dependence; Z82.49 Family history of ischemic heart disease and other diseases of the circulatory system; Z83.3 Family history of diabetes mellitus; Z80.0 Family history of malignant neoplasm of digestive organs; Z79.82 Long term (current) use of aspirin; K59.00 Constipation, unspecified; Z79.899 Other long term (current) drug therapy; K21.9 Gastro-esophageal reflux disease without esophagitis; I70.0 Atherosclerosis of aorta; H26.9 Unspecified cataract; E11.9 Type 2 diabetes mellitus without complications; I25.2 Old myocardial infarction; I48.0 Paroxysmal atrial fibrillation; I50.23 Acute on chronic systolic (congestive) heart failure; I50.82 Biventricular heart failure; L92.9 Granulomatous disorder of the skin and subcutaneous tissue, unspecified
CPT/HCPCS: 36415; 71010-TC; 80048-TC; 80061-TC; 80162-TC; 82962-TC; 83735-TC; 83880; 84100-TC; 84443-TC; 84484-TC; 85025-TC; 85730-TC; 87081-TC; 93971-TC; A4606; J1160; J1815; J1940; J3475; J3490; J7050; Q9967; Z7610